=== PATIENT | male | born 1940 | race Caucasian/White ===

== ENCOUNTER 2018-02-25 18:03 | Inpatient (IN) | payer OTHER, MEDICARE ==
--- NOTE | 2018-02-25 18:41 | PDOC ---
Attending Attestation - Resident Resident Name: MilannanoDeejay - ED Attending Attestation I have performed the following: I have examined & evaluated the patient, The case was reviewed & discussed with the resident, I agree w/resident's findings & plan, Exceptions are as noted - HPI HPI: 02/25/18 20:05 Mr Watson is 77 yo M who presents to the ER via EMS s/p fall down stairs Pt has a h/o HTN, HLD, CAD s/p CABG and stenting, h/o Traumatic ICH He was apparently walking up wooden stairs at home He fell backwards History is a bit limited Pt initially told me that he was in his usual state of health and slipped He then told me that he was dizzy but it is unclear to me if he was dizzy before or after falling He reports right frontal headache He also reports right rib pain No chest pain at all, no palpitations, no shortness of breath 02/25/18 20:05 - Physicial Exam PE: 02/25/18 20:12 GENERAL: The patient is in no acute distress, Awake and alert, answering all questions appropriately HEAD: Normal with no signs of trauma. EYES: PERRLA, EOMI, sclera anicteric, conjunctiva clear. ENT: Ears normal, nares patent, oropharynx clear without exudates. Moist mucous membranes. NECK: Normal range of motion, supple without midline tenderness LUNGS: Breath sounds equal, clear to auscultation bilaterally. No wheezes, and no crackles. HEART:Regular rate and rhythm, normal S1 and S2 without murmur, rub or gallop. ABDOMEN: Soft, nontender, normoactive bowel sounds. No guarding, no rebound. No masses palpable. EXTREMITIES: Normal range of motion NEUROLOGICAL: Cranial nerves II through XII grossly intact. Normal speech. No focal neurological deficits. MUSCULOSKELETAL: right lower rib tenderness to palpation, lumbar tenderness to palpation SKIN: Warm, Dry, normal turgor, no rashes or lesions noted. - Medical Decision Making 02/25/18 20:14 Will do: CT head and C spine Labs CXR EKG Re Assess EKG- Twelve-lead EKG was performed and reviewed by me. There is normal sinus rhythm with a normal rate. The axis is normal. The intervals are normal. There are no ST or T wave abnormalities. Impression: Normal twelve-lead EKG 02/25/18 20:15 Laboratory Tests 02/25/18 19:44 WBC 10.0 Hgb 11.8 Hct 35.2 L Plt Count 125 L 02/25/18 22:51 Laboratory Tests 02/25/18 02/25/18 19:44 19:44 INR 1.16 H BUN 16 Creatinine 0.6 Creatine Kinase 106 Troponin I < 0.02 CT: Subdural hemorrhage Call placed to NSGY Recommends avoiding excessive hydration Repeat CT on Tuesday Neuro checks Pt with right lower rib pain, CXR - Limited examination on portable study, no pneumothorax seen, no hemothroax seen, no rib fractures seen but this is limited Pt has a bruise on the right flank FAST performed by Dr Moreno - no free fluid seen Repeat FAST
[2018-02-25] MEDS ORDERED: ACETAMINOPHEN 1000 MG/100 ML VIAL (NON FORMULARY) IVPB ONE (19:05)
--- NOTE | 2018-02-25 19:05 | PDOC ---
History of Present Illness - General Chief Complaint: Head/Neck problem Stated Complaint: FALL, HEADACHE Time Seen by Provider: 02/25/18 18:25 History Source: Patient, Family Exam Limitations: No Limitations - History of Present Illness Initial Comments: 02/25/18 19:05 The patient is a 77M with a PMH of HTN, HLD, and DM who presents to the ER after sustaining a fall. The patient states that he was walking up the stairs and then fell. He does not recall all of the events that led to him falling. He currently complains of weakness, headache, and R lateral rib pain. He admits to lightheadedness but is not sure if it was before or after the fall. He denies any current CP, SOB, numbness, tingling, or weakness. Past History - Past Medical History Allergies/Adverse Reactions: Allergies Allergy/AdvReac Type Severity Reaction Status Date / Time No Known Allergies Allergy Verified 02/25/18 18:43 COPD: No - Immunization History Immunization Up to Date: Yes - Suicide/Smoking/Psychosocial Hx Smoking History: Unknown if ever smoked Hx Alcohol Use: No Drug/Substance Use Hx: No Review of Systems - Review of Systems Able to Perform ROS?: Yes Comments:: 02/25/18 20:18 GENERAL/CONSTITUTIONAL: No fever or chills. HEAD, EYES, EARS, NOSE AND THROAT: No change in vision. No ear pain or discharge. No sore throat. CARDIOVASCULAR: No chest pain, palpitations, or lightheadedness. RESPIRATORY: No cough, wheezing, shortness of breath, or hemoptysis. GASTROINTESTINAL: No nausea, vomiting, diarrhea, constipation, or abdominal pain. GENITOURINARY: No dysuria, frequency, hematuria, or change in urination. MUSCULOSKELETAL: No joint or muscle swelling or pain. No neck or back pain. SKIN: No rash or lesions. NEUROLOGIC: Positive for syncope and fall. No headache, numbness, tingling, focal weakness, or change in strength/sensation. Is the patient limited Greenlandic proficient: No *Physical Exam - Vital Signs Last Vital Signs Temp Pulse Resp BP Pulse Ox 97.8 F 62 18 156/66 97 02/25/18 18:36 02/25/18 18:36 02/25/18 18:36 02/25/18 18:36 02/25/18 18:36 - Physical Exam Comments: 02/25/18 20:19 GENERAL: Well developed, well nourished. Awake and alert. No acute distress. HEENT: Normocephalic, atraumatic. Hearing grossly normal. Moist mucous membranes. PERRLA, EOMI. No conjunctival pallor. Sclera are non-icteric. NECK: Supple. Full ROM. No JVD. CARDIOVASCULAR: Regular rate and rhythm. No murmurs, rubs, or gallops. Distal pulses are 2+ and symmetric. PULMONARY: No evidence of respiratory distress. Lungs clear to auscultation bilaterally. No wheezing, rales or rhonchi. ABDOMINAL: Soft. Non-tender. Non-distended. No rebound or guarding. MUSCULOSKELETAL: No midline spine tenderness. TTP over R lateral ribs. Normal range of motion at all joints. No bony deformities or tenderness. EXTREMITIES: No cyanosis. No clubbing. No edema. No calf tenderness or swelling. SKIN: Warm and dry. Normal capillary refill. No rashes. No jaundice. NEUROLOGICAL: Alert, awake, appropriate. Cranial nerves 2-12 intact. No deficits to light touch and temperature in face, upper extremities and lower extremities. 5/5 strength in deltoids, biceps, triceps, quadriceps, hamstrings, and gastrocnemius. Finger to nose normal bilaterally. Normal speech. Gait is normal without ataxia. PSYCHIATRIC: Cooperative. Good eye contact. Appropriate mood and affect. ED Treatment Course - LABORATORY CBC & Chemistry Diagram: 02/25/18 19:44 02/25/18 19:44 - RADIOLOGY Radiology Studies Ordered: Category Date Time Status CERVICAL SPINE CT W/O CONTR [CT] Stat CT Scan 02/25/18 18:[address] WITHOUT CONTRAST [CT] Stat CT Scan 02/25/18 18:[address] W/O CONTRAST [CT] Stat CT Scan 02/25/18 18:[address] W/O CONTRAST [CT] Stat CT Scan 02/25/18 18:36 Ordered CHEST X-RAY PORTABLE* [RAD] Stat Radiology 02/25/18 18:55 Ordered Medical Decision Making - Medical Decision Making 02/25/18 20:30 The patient is a 77M with a PMH of HTN, HLD, and DM on baby asa who presents to the ER after having a syncopal episode on the stairs and falling down 9 steps. Exam notable for R lateral rib tenderness without any FND. Concern for ICH and other fractures in body. Will image and send labs. Giving tylenol for pain control. 02/25/18 22:25 CTH shows: Small subdural hematoma extending along the right tentorium and extending into the anteromedial aspect of the right temporal fossa. Neurosgy paged. Pt informed. 02/25/18 23:34 NSGY, Dr. Crawford states that there is nothing to do from a surgical standpoint. No steroids, no AED. BP goals: normotensive. Will admit to unit and have frequent neuro checks and mental status checks. Repeat CT on Tuesday morning. If mental status or neuro exam changes, repeat CT. Inpt team informed. *DC/Admit/Observation/Transfer - Discharge Dispostion Decision to Admit order Date/Time: Decision to Admit Order Category Date Time Status Decision to Admit to Hospital Routine Admission 02/25/18 19:00 Active - Referrals Referrals: Catrachito Lopez [Primary Care Provider] - - Patient Instructions - Post Discharge Activity
[2018-02-25] MEDS ORDERED: ACETAMINOPHEN INJECTION 100 ML IVPB ONE (19:28)
[2018-02-25 19:54] LABS: BASO % 0.2 % (0-2.0); EOS % 0.2 % (0-4.5); HEMATOCRIT 35.2 % (35.4-49); HEMOGLOBIN 11.8 GM/dL (11.7-16.9); LYMPH % 5.4 % (8-40); MCH 30.2 pg (25.7-33.7); MCHC 33.5 g/dl (32.0-35.9); MEAN CELL VOLUME 90.1 fl (80-96); MEAN PLT VOLUME 7.9 fl (7.5-11.1); MONO % 6.1 % (3.8-10.2); NEUT % 88.1 % (42.8-82.8); PLATELET COUNT 125 K/MM3 (134-434); RDW 13.6 % (11.9-15.9)
[2018-02-25 20:30] LABS: ALBUMIN 3.7 g/dl (3.4-5.0); ALK PHOS 63 U/L (45-117); ANION GAP 9 MMOL/L (8-16); BILIRUBIN,TOTAL 0.6 mg/dL (0.2-1); BLOOD UREA NITROGEN 16 mg/dL (7-18); CALCIUM 8.2 mg/dL (8.5-10.1); CHLORIDE 100 mmol/L (98-107); CO2 27 mmol/L (21-32); CREATININE 0.6 mg/dL (0.55-1.3); GLUCOSE,RANDOM 137 mg/dL (74-106); POTASSIUM 3.8 mmol/L (3.5-5.1); SGOT/AST 19 U/L (15-37); SGPT/ALT 24 U/L (13-61); SODIUM 136 mmol/L (136-145); TOT PROT 6.7 g/dl (6.4-8.2)
[2018-02-25] MEDS ORDERED: SODIUM CHLORIDE 1,000 ML IV SCH (21:00)
[2018-02-25 22:06] LABS: INR 1.16 (0.83-1.09); PROTHROMBIN TIME (PATIENT) 13.7 SEC (9.7-13.0)
--- NOTE | 2018-02-25 23:49 | HP ---
CHIEF COMPLAINT: S/P fall PCP:Dr Catrachito Gomez HISTORY OF PRESENT ILLNESS: The patient is a 77M with a PMH of HTN, HLD, and DM who presents to the ER after sustaining a fall. The patient states that he was walking up the stairs and then fell. He does not recall all of the events that led to him falling. He currently complains of weakness, headache, and R lateral rib pain. He admits to lightheadedness but is not sure if it was before or after the fall. He denies any current CP, SOB, numbness, tingling, or weakness. ER course was notable for: (1)cbc, cmp (2)CT head (3)CT C spine Recent Travel: denies PAST MEDICAL HISTORY: as per HPI PAST SURGICAL HISTORY: R inguinal hernia, Appendectomy, CABG Social History: Smoking:denies Alcohol:denies Drugs: denies Family History:non contributory Allergies No Known Allergies Allergy (Verified 02/25/18 18:43) HOME MEDICATIONS: REVIEW OF SYSTEMS CONSTITUTIONAL: Absent: fever, chills, diaphoresis, generalized weakness, malaise, loss of appetite, weight change HEENT: Absent: rhinorrhea, nasal congestion, throat pain, throat swelling, difficulty swallowing, mouth swelling, ear pain, eye pain, visual changes CARDIOVASCULAR: Absent: chest pain, syncope, palpitations, irregular heart rate, lightheadedness , peripheral edema RESPIRATORY: Absent: cough, shortness of breath, dyspnea with exertion, orthopnea, wheezing, stridor, hemoptysis GASTROINTESTINAL: Absent: abdominal pain, abdominal distension, nausea, vomiting, diarrhea, constipation, melena, hematochezia GENITOURINARY: Absent: dysuria, frequency, urgency, hesitancy, hematuria, flank pain, genital pain MUSCULOSKELETAL: Absent: myalgia, arthralgia, joint swelling, back pain, neck pain SKIN: Absent: rash, itching, pallor HEMATOLOGIC/IMMUNOLOGIC: Absent: easy bleeding, easy bruising, lymphadenopathy, frequent infections ENDOCRINE: Absent: unexplained weight gain, unexplained weight loss, heat intolerance, cold intolerance NEUROLOGIC: Absent: headache, focal weakness or paresthesias, dizziness, unsteady gait, seizure, mental status changes, bladder or bowel incontinence PSYCHIATRIC: Absent: anxiety, depression, suicidal or homicidal ideation, hallucinations. PHYSICAL EXAMINATION Vital Signs - 24 hr 11/17/18 18:36 Temperature 97.8 F Pulse Rate 62 Respiratory 18 Rate Blood Pressure 156/66 O2 Sat by Pulse 97 Oximetry (%) GENERAL: AAOx3 in NAD HEAD:no laceration , ice back on right temporal EYES: CONNOR, EOMI sclera anicteric, conjunctiva clear. ENT: dry mucous membranes. NECK: FROM, supple LUNGS: CTA B/L . No wheezes, and no crackles. No accessory muscle use.right ribs pain with breathing and tender to palpation HEART:RRR, normal S1 and S2 without murmur, rub or gallop. ABDOMEN: Soft, nontender, not distended, normoactive bowel sounds, no guarding, MUSCULOSKELETAL: Normal range of motion at all joints. No bony deformities or tenderness. No CVA tenderness.Right flank echymosis 8x8 cm UPPER EXTREMITIES: 2+ pulses, warm, well-perfused. No cyanosis. LOWER EXTREMITIES: 2+ pulses, warm, well-perfused. No calf tenderness. No peripheral edema. NEUROLOGICAL: Cranial nerves II-XII intact. Normal speech. gait not observed . PSYCHIATRIC: Cooperative. Good eye contact. SKIN: Warm, dry, normal turgor, Laboratory Results - last 24 hr 02/25/18 02/25/18 02/25/18 19:44 19:44 19:44 WBC 10.0 RBC 3.90 L Hgb 11.8 Hct 35.2 L MCV 90.1 MCH 30.2 MCHC 33.5 RDW 13.6 Plt Count 125 L MPV 7.9 Absolute Neuts (auto) 8.8 H Neutrophils % 88.1 H Lymphocytes % 5.4 L Monocytes % 6.1 Eosinophils % 0.2 Basophils % 0.2 Nucleated RBC % 0 PT with INR INR PTT (Actin FS) 25.3 Sodium Potassium Chloride Carbon Dioxide Anion Gap BUN Creatinine Creat Clearance w eGFR Random Glucose Calcium Total Bilirubin AST ALT Alkaline Phosphatase Creatine Kinase Troponin I Total Protein Albumin Blood Type AB POSITIVE Antibody Screen Negative 02/25/18 02/25/18 19:44 19:44 WBC RBC Hgb Hct MCV MCH MCHC RDW Plt Count MPV Absolute Neuts (auto) Neutrophils % Lymphocytes % Monocytes % Eosinophils % Basophils % Nucleated RBC % PT with INR 13.70 H INR 1.16 H PTT (Actin FS) Sodium 136 Potassium 3.8 Chloride 100 Carbon Dioxide 27 Anion Gap 9 BUN 16 Creatinine 0.6 Creat Clearance w eGFR > 60 Random Glucose 137 H Calcium 8.2 L Total Bilirubin 0.6 AST 19 ALT 24 Alkaline Phosphatase 63 Creatine Kinase 106 Troponin I < 0.02 Total Protein 6.7 Albumin 3.7 Blood Type Antibody Screen CBC, BMP 02/25/18 19:44 02/25/18 19:44 ASSESSMENT/PLAN: The patient is a 77M with a PMH of HTN, HLD, and DM who presents to the ER after sustaining a fall. admitted for SDH # SDH S/P mechanical fall * noted on CT scan * Neurosurgery consult * Neurocheck Q 1 hr * monitor BB * PT * Fall precautions * Seisure precautions * ICU admission * Type and cross * No steroid , no keppra , * normal BP control # Right rib pain * X ray * pain control * incentive spirometry # Thrombocytopenia * plt 125 * HIV , Hep c screening * unknown base line * monitor CBC * avoid meds cause low plt * hold ASA # HTN * resume home emds Lisinopril 10 mg HS ,Increased his Norvasc to 10 mg po Q AM , * maintaine BP around 140/90 # HLD * cont Atorvastatin 40 mg po HS # CAD S/P CABG/Stent * cont home meds * Hold ASA # H/O ICH * 8 years ago treated medically # FEN * oral fluids * E: monitor * N: low sodium diabetic diet # Dispo * ICU Note : meds confirmed by his daughter (pharmacist) and the patient . Visit type - Emergency Visit Emergency Visit: Yes ED Registration Date: 02/25/18 Care time: The patient presented to the Emergency Department on the above date and was hospitalized for further evaluation of their emergent condition. - New Patient This patient is new to me today: Yes Date on this admission: 02/26/18 - Critical Care Critical Care patient: Yes Total Critical Care Time (in minutes): 45 Critical Care Statement: The care of this patient involved high complexity decision making to prevent further life threatening deterioration of the patient 's condition and/or to evaluate & treat vital organ system(s) failure or risk of failure.
--- NOTE | 2018-02-25 23:54 | CONSULT ---
Consult Consult Specialty:: CCM - History of Present Illness Chief Complaint: Fall, HE, rib pain History of Present Illness: Pt seen and examined in ICU 77 yo male with hx of CAD, DM, HL on daily 81mg ASA and remote hx of intercranial hemmorrhage who presents to ED after mechanical fall down a flight of stairs. Pt denies : loss of consciousness, syncope, precipitating event, substernal chest pain, weakness. Relates he was slipped and fell down wooden stairs, relates has been uneasy going down stairs of recent. He relates striking R frontal head, and R mid thoracic ribs. In ED pt was awake, alert, oriented, INAD. CT head shows subdural. Neurosurgery consulted, no intervention necessary. There is no focal deficit. 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 History of Recent Travel: No Home Medications - Allergies Allergies/Adverse Reactions: Allergies Allergy/AdvReac Type Severity Reaction Status Date / Time No Known Allergies Allergy Verified 02/25/18 18:43 - Home Medications Home Medications: Ambulatory Orders Acetaminophen [Tylenol] 325 mg PO DAILY PRN 02/25/18 Amlodipine Besylate 5 mg PO DAILY 02/25/18 Aspirin [ASA -] 81 mg PO DAILY 02/25/18 Atorvastatin Ca [Lipitor] 40 mg PO HS 02/25/18 Glipizide [Glipizide ER] 10 mg PO DAILY 02/25/18 Lisinopril 10 mg PO HS 02/25/18 Pantoprazole Sodium 40 mg PO AM 02/25/18 Polyvinyl Alcohol [Tears Again] 15 ml OP DAILY 02/25/18 Sitagliptin Phosphate [Januvia] 100 mg PO DAILY 02/25/18 metFORMIN HCL [Metformin HCl] 500 mg PO BID 02/25/18 Review of Systems Findings/Remarks: 12 point review negative except as per HPI Physical Exam Vital Signs: Vital Signs Temperature 97.9 F 02/25/18 23:51 Pulse Rate 69 02/25/18 23:51 Respiratory Rate 20 02/25/18 23:51 Blood Pressure 130/64 02/25/18 23:51 O2 Sat by Pulse Oximetry (%) 100 02/25/18 23:51 Constitutional: Yes: Well Nourished, No Distress, Calm Eyes: Yes: Conjunctiva Clear, EOM Intact HENT: Yes: Normocephalic Cardiovascular: Yes: S1, S2. No: Murmur Respiratory: Yes: WNL, CTA Bilaterally. No: Accessory Muscle Use Gastrointestinal: Yes: Normal Bowel Sounds, Soft ...Rectal Exam: Yes: Deferred Musculoskeletal: Yes: Muscle Pain (rib pain R chest) Extremities: Yes: WNL Edema: No Neurological: Yes: Alert, Oriented, Cran Nerves II-XII Intact. No: Facial Droop ...Motor Strength: WNL (5/5 all 4 ext) Labs: CBC, BMP 02/25/18 19:44 02/25/18 19:44 Imaging - Results Cat Scan: Report Reviewed, Image Reviewed (Small SDH in tentorium w/o mass effect) Assessment/Plan A/ 77 y/o man with PMHX of HTN, HL, DM and pervious SDH now with mechanical fall , found to have small hematoma in tentorium without mass effect or deficit, no neurosurgical intervention at this time P/ -repeat CTH in am -hold asa -insulin sliding scale, hold metformin - can restart statin -neurosurgery following -ok for floor if repeat head without interval increase -SCD for DVT hanna Griffin ACNP [id number]
[2018-02-26] MEDS ORDERED: ACETAMINOPHEN 325 MG TABLET (FP) PO PRN (00:41)
[2018-02-26 01:26] LABS: URINE APPEARANCE CLEAR; URINE BILIRUBIN NEGATIVE (<2.0 mg/dL); URINE COLOR STRAW; URINE GLUCOSE (UA) NEGATIVE (NEGATIVE); URINE KETONE TRACE (NEGATIVE); URINE LEUK ESTERASE NEGATIVE (NEGATIVE); URINE NITRITE NEGATIVE (NEGATIVE); URINE PROTEIN NEGATIVE (NEGATIVE); URINE UROBILINOGEN NEGATIVE mg/dL (0.2-1.0)
[2018-02-26] MEDS ORDERED: PATIENT'S OWN MEDICATION (NON-FORMULARY) (Acetaminophen [Tylenol] 325 MG) PO PRN (01:49)
[2018-02-26 01:50] LABS: EPI CELLS RARE /HPF (FEW)
[2018-02-26 02:16] VITALS: BMI 22.4
--- NOTE | 2018-02-26 03:44 | PN ---
Teaching Attending Note Name of Resident: Wesley Thacker ATTENDING PHYSICIAN STATEMENT I saw and evaluated the patient. I reviewed the resident's note and discussed the case with the resident. I agree with the resident's findings and plan as documented. SUBJECTIVE: Seen and examined; for further historical information please refer to resident note. Patient is a 77 y/o CM with a PMH significant for HTN, HLD, DM, CAD s/o CABG, remote history of ICH years ag that spontaneously resolved without neurosurgical intervention (records pending). ASA 81mg PO QD is his only medication. He [facility]'t come to [facility] and has no old records in out system. He suffered a mechanical fall today when going up his stairs. He hit his R- frontal head and his R-side with his abdomen, torso and was seen by his to loose consciousness for several minutes (estimated to be less than five). He then came to and was transported to the hospital. When I encountered him he had no complaints. He was found to have an acute subdural hematoma on head CT in the area of his R-tentorium extending to the anteromedial aspect of the R- temporal fossa. Nsgy was phoned by the ER and they stated for no nsgy intervention with no steroids or keppra to be given, frequent neuro checks with sz precautions, and close monitoring in the ICU setting. BP control was also recommended. 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 Good muscle tone. Sensorium intact. No FND. Cognition, affect, and mood are normal. RRR s1/2 no mgr Lungs CTAB with sym exp NT ND +BS x4 NC AT EOMI PERRLA Skin is dry with no rashes; large [id number] ecchymosis with pain to palpation on the R-flank -Telemetry reviewed: NSR -Imaging: CT head shows a small SDH along the R-tentorium to the anteromedial aspect of the right temporal fossa. CT C-spine negative for fx's. Final report is pending. CXR shows -Labs: CBC with plts low at 125. Chemistry and rest of CBC unremarkable. Negative troponin and unremarkable UA. -Old records pending regarding prior head bleed. ASSESSMENT AND PLAN: Mr. Watson is a 77 y/o male presenting with a mechanical fall causing a SDH; no surgical intervention planned. Monitoring in ICU. 1) Subdural Hemorrhage -Small SDH seen on CT along the tentorium without any mass effect, etc. Will repeat CT in AM as per nsgy -BP control; continue home meds and increase amlodipine to 10 from 5 as was consistantly having SBP 140s-150s and would ideally like in 130s. -Q1H neuro checks and seizure precautions -Avoiding anticoagulation and NSAIDs. -Further management per neurosrgery. 2) Prior Intracranial Hemorrhage -Was aparently small and nonoperatively managed; instructed team to get old records and am awaiting them. 3) Thrombocytopenia -Mild; unknown baseline. No compelling indication to XF at this juncture -Ddx broad; no new meds. Get screening HIV, HCV, Peripheral smear and trend. If these are negative the rest of the workup likely can be done as an outpatient. 4) Contusions/Pain after fall -PRN APAP -Incentive spirometry 5) CAD -Hold aspirin; resume when OK with nsgy. Otherwise plan to continue other home meds 6) HTN -Continue home lisinopril, increasing amlodipine from 5 to 10. 7) DM -SSI when inpatient; hold PO meds 8) HLD -Continue home meds; no new issues and can followup as OP DVT px: SCDs FENA -PO fluids encouraged; passed bedside swallow eval -PRN replete -Resume home diet; cardiac -BR with BRP Full Code
[2018-02-26 06:29] LABS: PHOSPHOROUS 3.4 mg/dL (2.5-4.9)
[2018-02-26] MEDS ORDERED: PANTOPRAZOLE 40 MG TABLET (FP) PO SCH (07:00)
[2018-02-26] MEDS: INSULIN SLIDING SCALE (NOVOLOG) 1 VIAL SQ SCH ×4 (07:00→21:15)
[2018-02-26] MEDS ORDERED: amLODIPine BESYLATE 5 MG TABLET (FP) PO SCH (10:00)
[2018-02-26] MEDS ORDERED: POLYETHYLENE GLYCOL 3350 119 GM BTL PO SCH (10:00)
[2018-02-26] MEDS ORDERED: MUPIROCIN 2% TOPICAL OINTMENT FOR DECOLONIZATION NS SCH (10:00)
[2018-02-26] MEDS ORDERED: amLODIPine BESYLATE 10 MG TABLET (FP) PO SCH (10:00)
[2018-02-26 10:35] LABS: BASO % 0.3 % (0-2.0); EOS % 0.5 % (0-4.5); HEMATOCRIT 33.8 % (35.4-49); HEMOGLOBIN 11.7 GM/dL (11.7-16.9); LYMPH % 16.6 % (8-40); MCHC 34.6 g/dl (32.0-35.9); MEAN CELL VOLUME 89.4 fl (80-96); MEAN PLT VOLUME 7.8 fl (7.5-11.1); MONO % 9.4 % (3.8-10.2); NEUT % 73.2 % (42.8-82.8); PLATELET COUNT 120 K/MM3 (134-434); RBC 3.78 M/mm3 (4.00-5.60); RDW 13.5 % (11.9-15.9); WHITE BLOOD COUNT 6.4 K/mm3 (4.0-10.0)
[2018-02-26 10:47] LABS: INR 1.18 (0.83-1.09)
[2018-02-26 10:52] LABS: ALBUMIN 3.6 g/dl (3.4-5.0); ALK PHOS 59 U/L (45-117); ANION GAP 11 MMOL/L (8-16); BILIRUBIN,TOTAL 0.8 mg/dL (0.2-1); BLOOD UREA NITROGEN 11 mg/dL (7-18); CALCIUM 8.1 mg/dL (8.5-10.1); CHLORIDE 100 mmol/L (98-107); CO2 23 mmol/L (21-32); CREATININE 0.6 mg/dL (0.55-1.3); GLUCOSE,RANDOM 119 mg/dL (74-106); POTASSIUM 3.5 mmol/L (3.5-5.1); SGOT/AST 15 U/L (15-37); SGPT/ALT 23 U/L (13-61); SODIUM 134 mmol/L (136-145); TOT PROT 6.5 g/dl (6.4-8.2)
--- NOTE | 2018-02-26 12:20 | EKG ---
Test Reason : Blood Pressure : / mmHG Vent. Rate : 062 BPM Atrial Rate : 062 BPM P-R Int : 208 ms QRS Dur : 078 ms QT Int : 436 ms P-R-T Axes : 076 -19 025 degrees QTc Int : 442 ms SINUS RHYTHM WITH PREMATURE ATRIAL COMPLEXES OTHERWISE NORMAL ECG WHEN COMPARED WITH ECG OF 25-FEB-2018 18:45, PREMATURE ATRIAL COMPLEXES ARE NOW PRESENT Confirmed by Grey Lucas ([id number]) on 02/26/2018 12:20:05 PM Referred By: Pritesh CASTILLO Confirmed By:Grey Lucas
--- NOTE | 2018-02-26 12:43 | EKG ---
Test Reason : Blood Pressure : / mmHG Vent. Rate : 062 BPM Atrial Rate : 062 BPM P-R Int : 208 ms QRS Dur : 080 ms QT Int : 432 ms P-R-T Axes : 080 -20 038 degrees QTc Int : 438 ms POOR DATA QUALITY, INTERPRETATION MAY BE ADVERSELY AFFECTED NORMAL SINUS RHYTHM NORMAL ECG NO PREVIOUS ECGS AVAILABLE Confirmed by Grey Lucas ([id number]) on 02/26/2018 12:43:29 PM Referred By: Confirmed By:Grey Lucas
--- NOTE | 2018-02-26 13:26 | PN ---
Progress Note, Physician Chief Complaint: Mr Watson complains of headache. Denies cp, sob, n/v. - Current Medication List Current Medications: Active Medications Acetaminophen (Tylenol -) 650 mg PO Q6H PRN PRN Reason: PAIN Last Admin: 02/26/18 08:47 Dose: 650 mg Amlodipine Besylate (Norvasc -) 10 mg PO DAILY [facility] Last Admin: 02/26/18 09:35 Dose: 10 mg Artificial Tears (Artificial Tears) [phone] drop OD DAILY [facility] Atorvastatin Calcium (Lipitor -) 40 mg PO HS [facility] Chlorhexidine Gluconate (Hibiclens For Decolonization -) 1 applic TP HS [facility] Insulin Aspart (Novolog Vial Sliding Scale -) 1 vial SQ ACHS [facility]; Protocol Last Admin: 02/26/18 07:00 Dose: Not Given Lisinopril (Prinivil) 10 mg PO HS [facility] Mupirocin (Bactroban Ointment (For Decolonization) -) 1 applic NS BID [facility] Stop: 03/03/18 09:59 Last Admin: 02/26/18 09:35 Dose: 1 applic Pantoprazole Sodium (Protonix -) 40 mg PO AM [facility] Last Admin: 02/26/18 07:09 Dose: 40 mg Polyethylene Glycol (Miralax (For Daily Use) -) 17 gm PO DAILY [facility] Last Admin: 02/26/18 09:37 Dose: 17 gm - Objective Vital Signs: Vital Signs Temperature 37.1 C 02/26/18 10:00 Pulse Rate 61 02/26/18 12:00 Respiratory Rate 17 02/26/18 12:00 Blood Pressure 130/75 02/26/18 12:00 O2 Sat by Pulse Oximetry (%) 97 02/26/18 09:00 Constitutional: Yes: Well Nourished, No Distress, Calm Cardiovascular: Yes: Regular Rate and Rhythm. No: Gallop, Murmur, Rub Respiratory: Yes: Regular, CTA Bilaterally. No: Rales, Rhonchi, Wheezes Gastrointestinal: Yes: Normal Bowel Sounds, Soft. No: Distention, Tenderness Extremities: Yes: WNL Edema: No Labs: CBC, BMP 02/26/18 10:05 02/26/18 10:05 INR, PTT INR 1.18 (0.83-1.09) H 02/26/18 10:05 Problem List - Problems (1) Subdural hematoma Assessment/Plan: -traumatic -repeat head CT pending -neurosurgery consulted Code(s): S06.5X9A - TRAUM SUBDR HEM W LOC OF UNSP DURATION, INIT (2) Fall Assessment/Plan: -mechanical -PT consult Code(s): W19.XXXA - UNSPECIFIED FALL, INITIAL ENCOUNTER Qualifiers: Encounter type: initial encounter Qualified Code(s): W19.XXXA - Unspecified fall, initial encounter (3) Thrombocytopenia Assessment/Plan: -HIV and Hep pending -monitor Code(s): D69.6 - THROMBOCYTOPENIA, UNSPECIFIED (4) HTN (hypertension) Assessment/Plan: -continue lisinopril and amlodipine -controlled Code(s): I10 - ESSENTIAL (PRIMARY) HYPERTENSION (5) HLD (hyperlipidemia) Assessment/Plan: -continue statin Code(s): E78.5 - HYPERLIPIDEMIA, UNSPECIFIED (6) Diabetes Assessment/Plan: -diabetic diet -FSBS and SSI -on glipizide, metformin, and januvia as an outpatient Code(s): E11.9 - TYPE 2 DIABETES MELLITUS WITHOUT COMPLICATIONS
[2018-02-26] MEDS ORDERED: ARTIFICIAL TEARS (POLYVINYL ALCOHOL) OPTH DROPS OD SCH (15:15)
--- NOTE | 2018-02-26 15:38 | PN ---
Progress Note (short form) - Note Progress Note: NEUROSURGERY CONSULT DICTATED H/o HTN, HLD, and DM is s/p a fall and hit R side of head. Not clear of the events. c/o headache\ and R lateral rib pain. + lightheadedness. Denies any current CP, SOB, numbness, tingling, or weakness. PE: AF, VSS HEENT- NC/AT; Neck- supple; Cor- RRR; Lungs- CTA B; Abd- benign; Ext- no sign of DVT CN- intact; Motor- 5/5 without drift; Sensation- intact LT; DTR- hyporeflexic; Cerebellar- intact B FTN Head CT (02-25)- R tentorial SDH, slight extension into medial temporal region Head CT (02-26)- evolving (perhaps a little less thick) R tentorial SDH C spine CT (02-25)- multilevel DDD worst C5-6; no fx, no dislocation LS spine CT (02-25)- no fracture, osteopenia INR 1.16 Traumatic R tentorial SDH, stable on f/u head CT No neurosurgical intervention indicated0 Care d/w patient, family, and ICU team Living quarters/precautions for home discussed
[2018-02-26] MEDS: ACETAMINOPHEN 325 MG TABLET (FP) PO PRN (21:16)
[2018-02-26] MEDS ORDERED: CHLORHEXIDINE GLUCONATE 4% CLEANSER FOR DECOLONIZATION TP SCH (22:00)
[2018-02-26] MEDS ORDERED: ATORVASTATIN CA 40 MG TABLET (FP) PO SCH ×2 (22:00)
[2018-02-26] MEDS ORDERED: LISINOPRIL 10 MG TABLET (FP) PO SCH ×2 (22:00)
[2018-02-27] MEDS: INSULIN SLIDING SCALE (NOVOLOG) 1 VIAL SQ SCH ×2 (06:17→12:01)
[2018-02-27 07:59] LABS: BASO % 0.5 % (0-2.0); EOS % 1.3 % (0-4.5); HEMATOCRIT 36.1 % (35.4-49); LYMPH % 22.3 % (8-40); MCHC 33.2 g/dl (32.0-35.9); MEAN CELL VOLUME 90.1 fl (80-96); MEAN PLT VOLUME 7.8 fl (7.5-11.1); MONO % 10.9 % (3.8-10.2); PLATELET COUNT 109 K/MM3 (134-434); RBC 4.01 M/mm3 (4.00-5.60); RDW 13.6 % (11.9-15.9); WHITE BLOOD COUNT 5.5 K/mm3 (4.0-10.0)
--- NOTE | 2018-02-27 08:35 | CONS ---
DATE OF CONSULTATION: 02/26/2018 REQUESTING PHYSICIAN: Corona Jimenez MD [employer] OPERATOR: Elias Sapp MD, of Neurosurgery. CHIEF COMPLAINT: Right tentorial subdural hematoma. HISTORY OF PRESENT ILLNESS: The patient is a 77-year-old, right-handed male with history of hypertension, hypercholesterolemia and diabetes, who sustained a mechanical fall yesterday evening. He had initially stated that he was walking upstairs and sustained a fall. He told a second person that he felt dizzy prior to falling. He presently has a mild headache, but no nausea or vomiting. He also has right lateral rib margin pain. There is no shortness of breath or chest pain. He has no weakness or numbness in the upper or lower extremities. He denies any seizure activity. There are no fevers or chills. PAST MEDICAL HISTORY: Significant for hypertension, diabetes, hypercholesterolemia, inguinal hernia repair, appendectomy, coronary artery bypass surgery. MEDICATIONS: Initially includes aspirin, lisinopril, Norvasc, Lipitor, Artificial Tears. ALLERGIES: No known drug allergies. FAMILY HISTORY: Noncontributory. SOCIAL HISTORY: He does not smoke and only drinks alcohol socially. He lives at home with family. REVIEW OF SYSTEMS: Otherwise negative for major constitutional, head and neck, cardiovascular, pulmonary, gastrointestinal, genitourinary, endocrinologic, neurologic, and psychological problems, except as noted above. PHYSICAL EXAMINATION: Vital Signs: Temperature 98.7, blood pressure is 110/50, pulse rate is 64, O2 saturation is 97% on room air. HEENT: Examination shows him to be normocephalic, atraumatic, anicteric. Neck: Supple with no carotid bruits. Coronary: Demonstrated regular rhythm. Lungs: Clear bilaterally. Abdomen: Benign. Extremities: No clubbing, cyanosis, or edema. Distal pulses are 1+. Neurologic: He is awake and alert, oriented x3. Cranial nerve examination is intact II-XII. Motor examination shows 5/5 strength without drift. Sensory examination is intact to light touch. Deep tendon reflexes are 1+ throughout. There is no pathologic long tract sign. Gait is not tested for safety reasons. Cerebellar examination demonstrated intact [id number] examination. LABORATORY EXAMINATION: Shows white blood cell count of 6.4, hemoglobin 11.7, platelet count 120,000, INR is 1.6 initially and this morning is 1.18. PTT is 26. Serum sodium is 134, potassium is 3.5, BUN is 11, and creatinine is 0.6. Hemoglobin A1c is 7.2. Urinalysis shows 1+ blood and trace ketones. There are 6 RBCs and less than [address] scan of the head initially demonstrated right tentorial subdural hematoma extending to the right medial temporal region. There is no significant mass affect, hydrocephalus, or shift. Follow up CT scan done earlier today demonstrates stable subdural hematoma, perhaps even slightly less. There is no hydrocephalus and no other acute pathology. CT scan of the cervical spine done yesterday demonstrated degenerative disc disease most prominent at C5-C6. There is no fracture, dislocation, or significant stenosis. CT scan of the lumbar spine done yesterday demonstrated osteopenia. There is degenerative facet disease at L4-L5 bilaterally. CT scan of the thoracic spine demonstrated T8-T9 degenerative joint disease. There is no fracture or dislocation. IMPRESSION: 1. Traumatic right tentorial subdural hematoma, stable. 2. Hypertension/coronary artery disease. 3. Hypercholesterolemia. 4. Diabetes. RECOMMENDATIONS: The patient presents with mechanical fall. He has a mild headache at this time, but no focal neurological deficit. CT scan of the head demonstrated stable right tentorial subdural hematoma with mild minimal mass effect. There is no other associated brain edema or shift. There is no hydrocephalus. No neurosurgical intervention is indicated nor recommended at this time. He was in the Intensive Care Unit overnight for neurological monitoring and remained neurologically stable. He can be transferred to the medical floor. The above was discussed with the patient and the patient's family at bedside in the ICU. Safety precautions at home such as rearranging his sleeping quarters to downstairs and to decrease the potential for falls in the future is highly recommended. The patient reportedly had a prior fall 6 years ago and sustained a traumatic subdural hematoma at that time as well. No anticonvulsants are recommended at this time. All questions were answered at bedside. ELIAS SAPP M.D. AFSHIN/[id number] MTDD
[2018-02-27 09:17] LABS: ANION GAP 10 MMOL/L (8-16); BLOOD UREA NITROGEN 12 mg/dL (7-18); CALCIUM 8.5 mg/dL (8.5-10.1); CHLORIDE 98 mmol/L (98-107); CO2 26 mmol/L (21-32); CREATININE 0.7 mg/dL (0.55-1.3); GLUCOSE,RANDOM 131 mg/dL (74-106); MAGNESIUM 2.1 mg/dL (1.8-2.4); PHOSPHOROUS 3.4 mg/dL (2.5-4.9); SODIUM 135 mmol/L (136-145)
[2018-02-27] MEDS ORDERED: amLODIPine BESYLATE 10 MG TABLET (FP) PO SCH (10:00)
[2018-02-27] MEDS ORDERED: ARTIFICIAL TEARS (POLYVINYL ALCOHOL) OPTH DROPS OD SCH (10:00)
[2018-02-27] MEDS ORDERED: POLYETHYLENE GLYCOL 3350 119 GM BTL PO SCH (10:00)
[2018-02-27] MEDS ORDERED: PANTOPRAZOLE 40 MG TABLET (FP) PO SCH (10:00)
--- NOTE | 2018-02-27 10:15 | PN ---
Progress Note (short form) - Note Progress Note: NEUROSURGERY Mild H/A, no N/V, No Sz Some R sided hip/flank area pain (Pt fell on the R) PE: AF, VSS HEENT- NC/AT; Neck- supple; Cor- RRR; Lungs- CTA B; Abd- benign; Ext- no sign of DVT CN- intact; Motor- 5/5 without drift; Sensation- intact LT; DTR- hyporeflexic; Cerebellar- intact B FTN; Gait- independent and stable Head CT (02-25)- R tentorial SDH, slight extension into medial temporal region Head CT (02-26)- evolving (perhaps a little less thick) R tentorial SDH Traumatic R tentorial SDH, stable on f/u head CT No neurosurgical intervention indicated Living quarters/safety precautions for home discussed w/ pt also
[2018-02-27] MEDS ORDERED: PT OWN MED DRAWER 7, Y5N ONE (10:40)
[2018-02-27] MEDS: ACETAMINOPHEN 325 MG TABLET (FP) PO PRN (10:59)
--- NOTE | 2018-02-27 11:53 | DS ---
Physical Examination Vital Signs: Vital Signs Temperature 37.1 C 02/27/18 05:00 Pulse Rate 66 02/27/18 03:00 Respiratory Rate 20 02/27/18 05:00 Blood Pressure 123/58 L 02/27/18 05:00 O2 Sat by Pulse Oximetry (%) 97 02/26/18 21:00 Labs: CBC, BMP 02/27/18 06:30 02/27/18 06:30 Discharge Summary Reason For Visit: SYNCOPE/SUBDURAL HEMATOMA Current Active Problems Diabetes (Acute) Fall (Acute) HLD (hyperlipidemia) (Acute) HTN (hypertension) (Acute) Subdural hematoma (Acute) Thrombocytopenia (Acute) Condition: Stable - Instructions Diet, Activity, Other Instructions: resume previous diet and activity. Patient to see PCP and decide when to restart aspirin. Referrals: Catrachito Lopez [Primary Care Provider] - Elias Osborne MD [Staff Physician] - Disposition: HOME - Home Medications Comprehensive Discharge Medication List: Ambulatory Orders Acetaminophen [Tylenol] 325 mg PO DAILY PRN 02/25/18 Amlodipine Besylate 5 mg PO DAILY 02/25/18 Atorvastatin Ca [Lipitor] 40 mg PO HS 02/25/18 Glipizide [Glipizide ER] 10 mg PO DAILY 02/25/18 Lisinopril 10 mg PO HS 02/25/18 Pantoprazole Sodium 40 mg PO AM 02/25/18 Polyvinyl Alcohol [Tears Again] 15 ml OP DAILY 02/25/18 Sitagliptin Phosphate [Januvia] 100 mg PO DAILY 02/25/18 metFORMIN HCL [Metformin HCl] 500 mg PO BID 02/25/18 Amlodipine Besylate [Norvasc -] 10 mg PO DAILY #30 tablet 02/27/18
[2018-02-27 12:35] VITALS: BP 128/65; PULSE 67; TEMP 97.8
[2018-02-28 06:06] LABS: HEP.C VIRUS AB <0.1 s/co ratio (0.0-0.9)
== END 2018-02-27 12:16 | disposition home or self-care (01) | DRG 87 ==
LOC: JER 18:03 → JERBED 19:00 → JICU 02-26 01:57 → J8W 02-26 18:20
PROVIDERS: ADMIT Internal Medicine; ATTEND Internal Medicine
DX: S06.5X1A Traumatic subdural hemorrhage with loss of consciousness of 30 minutes or less, initial encounter (principal); D69.6 Thrombocytopenia, unspecified; I25.10 Atherosclerotic heart disease of native coronary artery without angina pectoris; I10 Essential (primary) hypertension; E78.5 Hyperlipidemia, unspecified; E11.9 Type 2 diabetes mellitus without complications; Z79.84 Long term (current) use of oral hypoglycemic drugs; Z95.1 Presence of aortocoronary bypass graft; W10.8XXA Fall (on) (from) other stairs and steps, initial encounter; Y93.89 Activity, other specified; Y92.098 Other place in other non-institutional residence as the place of occurrence of the external cause; Y99.8 Other external cause status
CPT/HCPCS: 36415; 70450-TC; 71045-TC-FY; 72125-TC; 72128-TC; 72131-TC; 80048; 80053; 80074; 81003; 81015; 82550; 82962; 83036; 83605; 83735; 84100; 84484; 85025; 85610; 85730; 86850; 86900; 86901; 87389; 93005; 93010; 97116-GP; 97161-GP; 99285-25; J0131; J7030

== ENCOUNTER 2021-08-10 13:13 | Emergency (ER) | payer OTHER, MEDICARE ==
[2021-08-10 13:29] VITALS: BP 159/66; PULSE 66; BMI 26.4
== END 2021-08-10 14:10 | disposition home or self-care (01) ==
LOC: JER 13:13
DX: R20.2 Paresthesia of skin (principal); V48.0XXA Car driver injured in noncollision transport accident in nontraffic accident, initial encounter
CPT/HCPCS: 82962; 93005; 93010; 99284-25